=== PATIENT | female | born 1955 | race Caucasian/White ===

== ENCOUNTER 2024-03-16 16:10 | Outpatient (REF) | payer SELFPAY ==
--- NOTE | 2024-03-16 16:51 | MHC.AU.HA3 ---
Hearing Instrument Follow-Up- Binaural Date of Visit: 03/16/24 Right Ear: Make, Model, Color, Serial Number: [employer] More 1 miniRITE R [id number] High Pressure Boiler Operator Repair Warranty: contact [employer] if needed High Pressure Boiler Operator Loss and Damage Warranty: [facility] Service Plan: n/a Battery Size: Rechargeable Business Editor/Slim Tube: Earmold/Dome/CShell/SlimTip:6mm open alvarado Type of Wax Guard: minifit prowax Left Ear: Make, Model, Color, Serial Number: [employer]on More 1 miniRITE R [id number] High Pressure Boiler Operator Repair Warranty: contact [employer] if needed High Pressure Boiler Operator Loss and Damage Warranty: [facility] Service Plan: n/a Battery Size: Rechargeable Business Editor/Slim Tube: Earmold/Dome/CShell/SlimTip: 6mm open alvarado Type of Wax Guard: minifit prowax Follow-Up Summary: [facility] arrived with her . Temporarily in the area. Recently got hearing aids, had a problem with the right, her AuD sent the aid to [facility] and then shipped it back to [facility]. [facility] now having trouble with sound quality of aid, it is not connecting to her phone, not working with her left. [facility] provided [employer] document from her AuD. Entered the audiogram from the [employer] print out into our database. Connected the aids. Right was not programmed at all. Used instrument settings left, best fit right, aids paired together. Paired with phone and paired in regi. Improvement reported. Recommendations: Recommendations: Hearing instrument follow-up or maintenance as needed. Diagnosis Code(s): Primary Diagnosis: H90.3 Bilateral Sensorineural Hearing Loss Signature: Provider: Marko Rodriguez, [facility]
== END 2024-03-16 16:11 | disposition home or self-care (01) ==
LOC: HO.HAP 16:10
PROVIDERS: Visit Provider Nurse Practitioner Family
DX: Z46.1 Encounter for fitting and adjustment of hearing aid (principal); H90.3 Sensorineural hearing loss, bilateral
CPT/HCPCS: 92593